=== PATIENT | male | born 1985 | race Caucasian/White ===

== ENCOUNTER 2018-01-26 17:07 | Emergency (ER) | payer OTHER ==
[~2018-01-26] VITALS: Ht 167.6 cm; Wt 95.3 kg
[2018-01-26 17:14] VITALS: BP 135/85
--- NOTE | 2018-01-26 19:10 | NUR ---
32/M CAME IN W C/O POSSIBLE FOREIGN BODY TO RT EYE X 1 DAY. PT DENIES TRAUMA/INJURY OR ANY INCIDENTS. MILD REDNESS TO RT EYE NOTED, NO DISCHARGE. DENIES FLOATERS/PAIN, N/V, BLURRY VISION. DENIES OTHER PMH/RX/OTC
[2018-01-26] MEDS ORDERED: FLUORESCEIN OPTH STRIP 0.6 MG OP ONE (20:45)
[2018-01-26] MEDS ORDERED: TETRACAINE HCL/PF 0.5% OPTH 4 ML BTL OP ONE (20:45)
[2018-01-26] MEDS ORDERED: OPTHALMIC IRRIGATION 15 ML BTL OP ONE (20:45)
[2018-01-26 21:46] VITALS: BP 125/75
--- NOTE | 2018-01-26 21:46 | NUR ---
Patient discharged with v/s stable. Written and verbal after care instructions given and explained. Patient alert, oriented and verbalized understanding of instructions. Ambulatory with steady gait. All questions addressed prior to discharge. ID band removed. Patient advised to follow up with PMD. Rx of GENTAMYCIN OPTH given. Patient educated on indication of medication including possible reaction and side effects. Opportunity to ask questions provided and answered.
== END 2018-01-26 21:46 | disposition home or self-care (01) ==
LOC: MED 17:07
DX: T15.11XA Foreign body in conjunctival sac, right eye, initial encounter (principal); X58.XXXA Exposure to other specified factors, initial encounter; Y93.89 Activity, other specified; Y92.89 Other specified places as the place of occurrence of the external cause; Y99.8 Other external cause status
CPT/HCPCS: 99284

== ENCOUNTER 2019-10-31 09:25 | Emergency (ER) | payer OTHER ==
[~2019-10-31] VITALS: Ht 172.7 cm; Wt 98.9 kg
[2019-10-31 09:33] VITALS: BP 137/77
--- NOTE | 2019-10-31 09:34 | NUR ---
Patient ambulated to bed 11
--- NOTE | 2019-10-31 09:36 | NUR ---
34M PT C/O COUGH X 3 WKS, DIZZINESS X 3 DAYS. reports taking tylenol and cough drops with no progress. Breath sounds clear thoughout. no report of n/v/d. a/o x 4 MEDHX: DENIES
--- NOTE | 2019-10-31 09:49 | NUR ---
DR CARRERA AT BEDSIDE EVALUATING PATIENT.
--- NOTE | 2019-10-31 10:08 | NUR ---
Patient discharged with v/s stable. Written and verbal after care instructions given and explained. Patient alert, oriented and verbalized understanding of instructions. Ambulatory with steady gait. All questions addressed prior to discharge. ID band removed. Patient advised to follow up with PMD. Rx of meclizine and albuterol given. Patient educated on indication of medication including possible reaction and side effects. Opportunity to ask questions provided and answered.
[2019-10-31 10:09] VITALS: BP 126/74
== END 2019-10-31 10:08 | disposition home or self-care (01) ==
LOC: MED 09:25
DX: R42 Dizziness and giddiness (principal); R05 Cough
CPT/HCPCS: 99283